=== PATIENT | male | born 1965 | race Caucasian/White ===

== ENCOUNTER 2017-11-17 01:53 | Outpatient (CLI) | payer MEDICAID, SELFPAY ==
[2017-11-17 10:44] LABS: Cholesterol 211 mg/dL (50-200); HDL Cholesterol 43 mg/dL (40-60); LDL CHOLESTEROL 152 mg/dL (<100); Triglyceride 136 mg/dL (30-150)
[2017-11-20 14:49] LABS: Homocysteine 7.2 umol/L (4.5-12.4)
[2017-11-22 10:53] LABS: Protein C, Functional 116 % (71-199)
[2017-11-23 08:43] LABS: Factor V Leiden (R506Q) Mutat Negative (Negative)
== END 2017-11-17 02:13 ==
PROVIDERS: PCP Family Medicine; Visit Provider Family Medicine
DX: E78.00 Pure hypercholesterolemia, unspecified (principal); H34.8122 Central retinal vein occlusion, left eye, stable
CPT/HCPCS: 36415; 80061; 83090; 83721; 86147; 81241; 83735; 85303

== ENCOUNTER 2018-06-20 13:11 | Outpatient (CLI) | payer MEDICAID, SELFPAY ==
[2018-06-20 14:02] LABS: HCT 42.2 % (40.0-50.0); HGB 14.3 g/dL (13.5-17.5); Mean Corp. HGB Concentration 33.9 g/dL (32.0-36.0); Mean Corpuscular Hemoglobin 28.5 pg (27.0-33.0); Mean Corpuscular Volume 84.2 fL (80-95); Mean Platelet Volume 10.1 fL (8.0-11.0); Platelet Count 295 x1000/uL (130-400); RBC 5.01 m/cumm (4.50-6.00); RBC Distribution Width 12.8 % (11.8-14.1); White Blood Cell Count 5.19 k/cumm (4.4-10.8)
[2018-06-20 14:30] LABS: Prothrombin Time 9.8 sec (9.3-11.0)
[2018-06-20 14:43] LABS: ESR 5 MM/HR (1-20)
[2018-06-21 09:43] LABS: Rheumatoid Factor <8 IU/mL (<12.5)
[2018-06-21 10:36] LABS: Syphilis Serology (RPR) Negative (Negative)
[2018-06-21 14:08] LABS: ANA Interpretation Positive (NEGAT); ANA Titer Pattern 1:80 Speckled
[2018-06-21 15:20] LABS: Albumin 62.3 % (55.8-66.1); Total Protein 7.1 g/dl (6.3-8.2)
[2018-06-25 13:07] LABS: Cryoglobulin, S Negative %ppt (Negative)
[2018-06-25 14:59] LABS: Prothrombin G20210A Mutation Negative (Negative)
[2018-06-27 13:15] LABS: Protein S, Functional 111 % (73-156)
== END 2018-06-20 13:31 ==
PROVIDERS: PCP Family Medicine; Visit Provider Family Medicine
DX: H34.8122 Central retinal vein occlusion, left eye, stable (principal)
CPT/HCPCS: 36415; 81240; 85027; 85306; 85652; 82595; 84165; 85610; 85730; 86038; 86147; 86431; 86592

== ENCOUNTER 2021-01-14 02:15 | Outpatient (CLI) | payer MEDICAID, SELFPAY ==
[2021-01-14 14:53] LABS: Calculated LDL 131 mg/dL (<100); Cholesterol 203 mg/dL (<200); Glucose 86 mg/dL (74-106); HDL Cholesterol 45 mg/dL (40-60); Triglyceride 135 mg/dL (<150)
[2021-01-14 18:30] LABS: PSA, Screening 1.7 ng/mL (0.0-3.5)
== END 2021-01-14 02:16 | disposition home or self-care (01) ==
LOC: LOS 02:15
PROVIDERS: PCP Family Medicine; Visit Provider Family Medicine
DX: E78.5 Hyperlipidemia, unspecified (principal); R73.9 Hyperglycemia, unspecified; Z12.5 Encounter for screening for malignant neoplasm of prostate
CPT/HCPCS: 36415; 80061; 82947; 84153

== ENCOUNTER 2022-11-21 04:21 | Outpatient (CLI) | payer MEDICAID, SELFPAY ==
[2022-11-21 08:18] LABS: Calculated LDL 118 mg/dL (<100); Cholesterol 190 mg/dL (<200); HDL Cholesterol 48 mg/dL (40-60); Triglyceride 121 mg/dL (<150)
== END 2022-11-21 04:22 | disposition home or self-care (01) ==
LOC: LBO 04:22
PROVIDERS: PCP Family Medicine; Visit Provider Family Medicine
DX: E78.5 Hyperlipidemia, unspecified (principal)
CPT/HCPCS: 36415; 80061

== ENCOUNTER 2024-06-09 17:41 | Emergency (ER) | payer MEDICAID, SELFPAY ==
[2024-06-09 17:46] VITALS: BP 177/107; PULSE 70; RESP 12; TEMP 36.4; O2SAT 98
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
[2024-06-09] MEDS: Clindamycin 150 MG CAP 450 MG PO (18:26)
[2024-06-09] MEDS: Doxycycline Hyclate 100 MG CAP PO (18:26)
[2024-06-11 10:55] LABS: Lyme Ab w Rflx to Lyme Confirm Negative (Negative)
[2024-06-13 00:33] LABS: Anaplasma phagocytophilum Negative (Negative); B. miyamotoi PCR Negative (Negative); Babesia divergens/MO-1 Negative (Negative); Babesia duncani Negative (Negative); Babesia microti Negative (Negative); Ehrlichia chaffeensis Negative (Negative); Ehrlichia ewingii/canis Negative (Negative); Ehrlichia muris eauclairensis Negative (Negative)
== END 2024-06-09 18:27 | disposition home or self-care (01) ==
LOC: ER 18:32
PROVIDERS: Emergency Provider Physician Assistant; PCP Family Medicine
DX: S70.361A Insect bite (nonvenomous), right thigh, initial encounter (principal); W57.XXXA Bitten or stung by nonvenomous insect and other nonvenomous arthropods, initial encounter; Y93.89 Activity, other specified
CPT/HCPCS: 87798; 99283; 86618

== ENCOUNTER 2024-12-20 04:12 | Outpatient (CLI) | payer MEDICAID, SELFPAY ==
[2024-12-20 08:57] LABS: Hemoglobin A1C 5.0 % (<5.7)
[2024-12-20 09:11] LABS: Calculated LDL 135 mg/dL (<100); Cholesterol 219 mg/dL (<200); HDL Cholesterol 44 mg/dL (>or=40); Triglyceride 203 mg/dL (<150)
== END 2024-12-20 04:13 | disposition home or self-care (01) ==
LOC: LBO 04:12
PROVIDERS: PCP Family Medicine; Visit Provider Nurse Practitioner Family
DX: Z13.220 Encounter for screening for lipoid disorders (principal); Z13.1 Encounter for screening for diabetes mellitus
CPT/HCPCS: 36415; 80061; 83036

== ENCOUNTER 2024-12-20 08:08 | Day surgery (SDC) | payer MEDICAID, SELFPAY ==
--- NOTE | 2024-12-19 20:11 | W.PM.DSUDISC ---
Date of service: 12/20/24 Discharge Plan Disposition Patient Disposition: Home Condition: Good Discharge Details Reason For Visit: screening colonoscopy Attending Provider: Alfred Dotson Primary Care Provider: Jose Feliciano Home Meds and New Rx's Prescriptions: Continued epinephrine 0.3 mg/0.3 mL auto-injector 0.3 mg IM ONCE PRN (Reason: anaphylaxis) Qty: 1 0RF celecoxib 200 mg capsule 200 mg PO DAILY PRN (Reason: pain) Qty: 90 3RF esomeprazole magnesium [Nexium] 40 mg capsule,delayed release(DR/EC) 40 mg PO DAILY Qty: 90 3RF Discontinued bisacodyl [Dulcolax (bisacodyl)] 5 mg tablet,delayed release (DR/EC) 5 mg PO ONCE Qty: 4 0RF Rx Instructions: take per colonoscopy instructions polyethylene glycol 3350 17 gram/dose powder 238 g PO ONCE Qty: 238 0RF Rx Instructions: take per colonoscopy instructions Discharge Instructions Instructions: Colon polyps, Diverticulosis Additional Instructions: Abundio, it was nice to meet you today, and hope you feel well after the procedure. Things went very smoothly. I did find, and remove 1 polyp today. I will send this to the pathologist for their review. Once I know the nature of this polyp, my office will be in touch with recommendations for future colonoscopies. Incidentally, you also have diverticulosis. Diverticula are little weak spots in the muscular layer of the colon wall. This causes the inside lining, or mucosa, to pocket her pouch outwards. These all pockets are called diverticula and the condition of having them is known as diverticulosis. Some patients will experience inflammation of this referred to as diverticulitis. Hopefully your stone bother you. I will attach some basic information here about diverticulosis as well as colorectal polyps. If you need anything, or have any questions, please do not hesitate to ask, otherwise we will be in touch once the pathology report is complete. 1. If tolerated, consume a soft, low fiber diet for 1-2 days. [address] Do not drive, drink alcohol, operate machinery, make critical decisions, or do activities that require coordination or balance for 24 hours. 3. Because air was put into your colon during the procedure, expelling air from your rectum (passing gas or farting) is normal. 4. You may not have a bowel movement for 1-3 days because of the colonoscopy prep. This is normal. 5. Go directly to the emergency room if you notice any of the following: Develop chills (warm to touch), or if you have a thermometer and your temperature is above 101 Difficulty breathing or difficultly swallowing Persistent vomiting Severe abdominal pain, other than gas cramps Severe chest pain Black, tarry stools Any bleeding ? exceeding one tablespoon 6. Call your physician if the site where your intravenous was started becomes red, swollen, painful, and warm to touch. 7. Your physician has reviewed your pre-procedure medications. Please continue to take those medications as previously ordered. You will be given specific information/education regarding any changes to your medications before leaving. Stand Alone Forms: Anesthesia Discharge InstSteve, Calderon Gomez (DSU) Activity:: Activity as Tolerated Diet:: As Tolerated Discharge Orders Discharge Orders: Discharge Order (Routine); Ordered 12/19/24 Ordered By: Alfred Dotson DS: Diagnosis Discharge Diagnosis (1) Encounter for screening colonoscopy: Status: Acute Asessment and Plan: Follow-up on polypectomy results
--- NOTE | 2024-12-19 20:12 | W.COLOREPORT ---
Date of service: 12/20/24 Time of Service: 10:36 Colonoscopy Report Date of procedure: 12/20/24 Pre-op diagnosis general: screening colonoscopy Post-op diagnosis procedure note: other (Colon polyp, diverticulosis) Procedure: colonoscopy with polypectomy Surgeon: Alfred Dotson Anesthesia Type: General:No Airway Estimated blood loss (mL): 5 Pathology: other (0.5 cm pedunculated polyp at 55 cm) Complications: None Disposition: same day Indications: Abundio is a 59 year old man who needs a screening colonoscopy Prep: Miralax/Dulcolax Procedure Start Time: 10:15 Procedure End Time: 10:28 Retraction Time: 6 Findings: Sigmoid diverticulosis, 0.5 cm pedunculated polyp at 55 cm Procedure Description: After the induction of anesthesia, and with Abundio in left lateral decubitus position, I began by performing an external anorectal exam.? Perineum and skin were normal, as was the anal verge.? There was no evidence of external hemorrhoids.? Next, I performed a digital rectal exam.? I did not appreciate any abnormal findings.? Next, I advanced a colonoscope into the rectal vault.? I performed retroflexion.? This appeared normal.? Using insufflation, I then advanced the colonoscope beyond the rectal folds and into the sigmoid colon before advancing towards the cecum.? There is sigmoid diverticulosis. Around 55 cm from the anal verge is a 0.5 cm pedunculated polyp. It appears a bit inflamed. This was removed with a energize snare polypectomy. Resection was complete and the specimen was retrieved. I continued advancing towards the right side. The quality of the prep was excellent.? The scope was noted to be in the cecum by identification of the ileocecal valve and appendiceal orifice.? I then began withdrawing the colonoscope using repeated irrigation as necessary for full evaluation of the colonic mucosa. The previously mentioned polypectomy site was observed and found to be hemostatic. ?Once the scope was withdrawn to the level of the rectum, great care was taken to examine portions of the rectal folds.? Finally, the scope was withdrawn and the patient was brought to the same-day surgery recovery unit as the anesthetic wore off. ?The findings and instructions were shared with the patient prior to discharge. [place] Bowel Prep [place] Bowel Prep Right Colon: 3 Left Colon: 3 Transverse Colon: 3 Total Score: 9
[2024-12-20 08:38] VITALS: BP 133/94; PULSE 57; RESP 16; TEMP 36.5; O2SAT 99
[2024-12-20] MEDS: Lactated Ringers 1,000 ML 80 ML IV (08:54)
--- NOTE | 2024-12-20 09:56 | W.ANESPRE ---
General Info Date of Service Date Performed: 12/20/24 Height: 5 ft 11 in Weight: 93.3 kg Body Mass Index (BMI): 28.7 Surgical Procedure: Operation Date: 12/20/24 09:50 Proposed Procedure Side Surgeon p Colonoscopy Alfred Dotson MD Meds Allergies and Home Medications Allergies Allergy/AdvReac Type Severity Reaction Status Date / Time Penicillins Allergy Severe Anaphylaxsi Verified 12/20/24 08:42 s venom-honey bee (bee venom Allergy Intermediate swelling Verified 12/20/24 08:42 (honey bee)) and itching bupropion HCl (From AdvReac Severe HEADACHES Verified 12/20/24 08:42 Wellbutrin) Home Medication ?Medication ?Instructions ?Recorded epinephrine 0.3 mg/0.3 mL 0.3 mg (0.3 mL) IM ONCE PRN 01/05/23 injection, auto-injector anaphylaxis #1 ea Nexium 40 mg capsule,delayed 40 mg PO DAILY #90 caps 12/16/24 release (esomeprazole magnesium) celecoxib 200 mg capsule 200 mg PO DAILY PRN pain #90 caps 12/16/24 Current Visit Medications: Current Medications Generic Name Dose Route Start Last Admin Trade Name Freq PRN Reason Stop Dose Admin Ringer's Solution 1,000 mls @ 80 mls/hr 12/20/24 06:00 12/20/24 08:54 IV 12/20/24 23:59 80 mls/hr INFUSION ANKUSH Administration IV Miscellaneous Supplies 1 each 12/20/24 06:00 Iv Access IV 12/20/24 23:59 DIRECTED ANKUSH Sodium Chloride 0 ml 12/20/24 06:00 Normal Saline Flush 10 Ml Syr IV 12/20/24 23:59 PRN PRN Sodium Chloride 0 ml 12/20/24 06:00 Normal Saline 10 Ml Vial IJ 12/20/24 23:59 DIRECTED PRN Sterile Water 0 ml 12/20/24 06:00 Water,Injection,Sterile 10 Ml Vial IJ 12/20/24 23:59 DIRECTED PRN PFSH Active Problems Active Problems: Problem Status Onset Code Encounter for screening colonoscopy Acute Z12.11 CME (cystoid macular edema) Acute H35.359 Low back pain Acute M54.50 Blood pressure elevated without history of HTN Acute R03.0 Central retinal vein occlusion of left eye Acute H34.8122 Concussion Acute S06.0X9A Esophageal reflux Acute K21.9 Hiatal hernia Acute K44.9 Hypercholesteremia Acute E78.00 Neoplasm of unspecified nature of bone, soft tissue, and skin Acute D49.2 Sensorineural hearing loss Acute H90.5 Tinnitus Acute H93.19 Torn rotator cuff Acute M75.100 Surgical History Surgical History EGD - MAC (~2013) Rotator Cuff Repair 06/2007; RIGHT Tobacco Smoking/Tobacco Use Status: Never Passive smoking exposure: Yes Second hand exposure: Yes Alcohol Alcohol Intake: current Alcohol intake frequency: a few times a month Alcohol type: beer Substance Use Substance use: Never Substance use type: does not use Vital Signs and Lab Results Vital Signs Most Recent Vital Signs in EMR: Most Recent Vital Signs Temp Pulse Resp BP Pulse Ox 36.5 C 57 L 16 133/94 H 99 12/20/24 08:38 12/20/24 08:38 12/20/24 08:38 12/20/24 08:38 12/20/24 08:38 Lab Results Complete Metabolic Panel: Hemoglobin A1c, (<5.7) 5.0 % Today, 08:07 Anesthesia Assessment and Plan Anesthesia History Personal History: No History of Anesthesia Complications Family History: No Family History of Anesthesia Complications Exercise Tolerance Exercise Tolerance: Metabolic Equivalents>4 Pertinent Negatives Pertinent Negatives: No Symptoms of GERD Cardiac & Pulmonary Exam Cardiac Exam: Normal S1/S2 Heart Sounds Pulmonary Exam: Clear Bilateral Breath Sounds Implantable Cardiac Device Does patient have a Pacemaker or an ICD?: No Airway Exam Known Difficult Airway: No Mallampati Class: 2 Mouth Opening: Normal (> 3cm) Thyromental Distance: Less than 3 cm Neck Range of Motion: Full ROM Neck Circumference: Normal Teeth Condition: Normal Dentition ASA Classification ASA Score: ASA 2 Emergency Case?: No NPO Status NPO Status: NPO Clears >2 hours, Solids >8 hours Anesthesia Plan Resuscitation Status: Full Code Anesthesia Technique: General Anesthesia Airway Planned: Natural Airway Monitors Used: Standard Monitors
[2024-12-20 09:58] VITALS: BMI 28.7
--- NOTE | 2024-12-20 10:20 | BOWEL_PTH ---
PATIENT: Abundio Gonzalez LOC: [facility] U#:[id number] AGE/SX: 59/M ROOM: RE12/20/[address]: Alfred Dotson MD : 1965 BED: DIS: 12/20/2024 SPEC #: [id number] RECD: 12/20/24 11:03 STATUS: ROD RE #: [id number] YARELI: 12/20/24 10:[address]: Alfred Dotson DEPT: Surgical Specimen RECD BY: Jania Conti ENTERED: 12/20/24 11:04 SP TYPE: Bowel OTHR DR: Jose Feliciano MD Tissues: 1 - BIOPSY BOWEL Procedures: GROSS AND MICRO LEVEL 4 Comments: [id number]
[2024-12-20 10:35] VITALS: BP 115/73; PULSE 63; RESP 16; TEMP 36.3; O2SAT 95
--- NOTE | 2024-12-20 10:48 | W.ANESPOSTOP ---
Postoperative Evaluation Date, Time and Location Date Performed: 12/20/24 Time Performed: 10:48 Patient Location: Day Surgery Unit Vital Signs Most Recent Imported Vital Signs: Most Recent Vital Signs Temp Pulse Resp BP Pulse Ox 36.3 C L 63 16 115/73 95 12/20/24 10:35 12/20/24 10:35 12/20/24 10:35 12/20/24 10:35 12/20/24 10:35 Pain Score Most Recent Pain Score: Most Recent Pain Score Pain Level 0 12/20/24 08:38 Assessment Mental Status: Awake (Alert & Oriented to Patient Baseline) Airway and Respiratory Function: Patent airway with normal (patient baseline) respiratory exam Cardiovascular Function: Hemodynamically Stable Hydration Status: Adequately Hydrated Nausea & Vomiting: No Nausea or Vomiting Pain: Pt. Denies Any Pain Peripheral Nerve Block: Patient did not receive a nerve block
[2024-12-20 10:55] VITALS: BP 133/92; PULSE 74; RESP 16; TEMP 36.5; O2SAT 100
== END 2024-12-20 11:07 | disposition home or self-care (01) ==
LOC: SUR 08:08
PROVIDERS: PCP Family Medicine; Visit Provider Surgery
PROC: 0DJD8ZZ Inspection of Lower Intestinal Tract, Via Natural or Artificial Opening Endoscopic (ICD-10-PCS; CPT 45378; principal; 2024-12-20 09:45)
DX: Z12.11 Encounter for screening for malignant neoplasm of colon (principal); K63.5 Polyp of colon; K57.30 Diverticulosis of large intestine without perforation or abscess without bleeding
CPT/HCPCS: 45385; 88305; J2704